=== PATIENT | female | born 1945 | race Caucasian/White ===

== ENCOUNTER 2023-10-24 07:23 | Day surgery (SDC) | payer BC ==
[2023-10-20 16:21] LABS: BASOPHILS # (AUTO) 0.1 X10'3 (0-0.2); BASOPHILS % (AUTO) 0.8 % (0-1); EOSINOPHILS # (AUTO) 0.3 X10'3 (0-0.9); EOSINOPHILS % (AUTO) 3.3 % (0-6); LYMPHOCYTES # (AUTO) 2.4 X10'3 (1.1-4.8); LYMPHOCYTES % (AUTO) 26.3 % (21-51); MEAN CORPUSCULAR HEMOGLOBIN 30.3 PG (27.0-31.0); MEAN CORPUSCULAR HGB CONC 33.5 g/dL (33.0-36.5); MEAN CORPUSCULAR VOLUME 90.7 FL (78-98); MEAN PLATELET VOLUME 9.7 FL (7.4-10.4); MONOCYTES # (AUTO) 0.7 X10'3 (0-0.9); MONOCYTES % (AUTO) 7.8 % (2-12); NEUTROPHILS # (AUTO) 5.7 X10'3 (1.8-7.7); NEUTROPHILS % (AUTO) 61.8 % (42-75); PRE OP HEMATOCRIT 42.2 % (35.0-45.0); PRE OP HEMOGLOBIN 14.1 g/dL (12.0-16.0); PRE OP PLATELET COUNT 261 X10'3 (140-440); PRE OP WHITE BLOOD COUNT 9.2 10'3 (4.8-10.8); RED BLOOD COUNT 4.65 X10'6 (4.20-5.60)
[2023-10-20 16:53] LABS: ALBUMIN 3.8 G/DL (3.4-5.0); ALKALINE PHOSPHATASE 94 IU/L (46-116); BLOOD UREA NITROGEN 29 MG/DL (7-18); BUN/CREATININE RATIO 39.7 (10.0-20.0); CALCIUM 9.6 MG/DL (8.5-10.1); CHLORIDE 103 MMOL/L (99-107); CREATININE 0.73 MG/DL (0.40-0.90); PRE OP ALT 28 U/L (30-65); PRE OP ANION GAP 7 (8-16); PRE OP AST 23 U/L (10-37); PRE OP BILIRUB, TOTAL 0.3 MG/DL (0.0-1.0); PRE OP GLUCOSE 97 MG/DL (70-104); PRE OP SODIUM 140 MMOL/L (135-145); TOTAL CARBON DIOXIDE 29.7 MMOL/L (24-32); TOTAL PROTEIN 7.6 G/DL (6.4-8.2); eGFR 78 ML/MIN
[~2023-10-24] VITALS: Ht 156.2 cm; Wt 81.4 kg
[2023-10-24] VITALS (11 sets, daily range): BP systolic 108–140; BP diastolic 54–85; PULSE 64–81; RESP 11–16; TEMP 97.8; O2SAT 94–98
[2023-10-24] MEDS: cefazolin 2gm/D5W 100mL 100 ML IV ONE (05:30)
[~2023-10-24 07:23] MED LIST: AMLO5TAB16 PO; ASPI81TA52 PO; BUDE10.2; DOCU-337 PO; ESTR10TA4 VG; GABA-530; HYDR25TA4 PO; LEVO25TA7 PO; LORA-641; MIDAZolam 1mg/ml 10ml vial ONE; OXYB-58 PO; POTA-208 PO; ROSU20TA73 PO; TRIA10.8 BOTHNARES; ePHEDrine 50MG/ML INJ. ONE; fentaNYL/PF 50MCG/1 ML 2ML syringe ONE
[2023-10-24] MEDS ORDERED: hydrALAZINE 20mg/ml inj. IV PRN (07:55)
[2023-10-24] MEDS ORDERED: ringers solution, lacted 1,000 ML IV SCH (07:55)
[2023-10-24] MEDS ORDERED: meperidine/PF 25mg/ml syringe IV PRN ×2 (07:55)
[2023-10-24] MEDS ORDERED: proCHLORperazine 10 MG/2 ml inj IV PRN (07:55)
[2023-10-24] MEDS ORDERED: labetalol 20mg/4ml (5mg/ml) syringe IV PRN (07:55)
[2023-10-24] MEDS ORDERED: ondansetron/PF 4mg/2ml inj IV PRN (07:55)
[2023-10-24] MEDS ORDERED: morphine 2 MG/ML inj. syringe IV PRN (07:55)
[2023-10-24] MEDS: famotidine 20mg tablet PO ONE (08:22)
[2023-10-24] MEDS: ringers solution, lacted 1,000 ML IV SCH (08:23)
[2023-10-24 09:28] LABS: ISTAT CREATININE 0.8 mg/dL (0.6-1.1); ISTAT HGB 14.3 g/dl (12.0-16.0); ISTAT IONIZED CALCIUM 1.11 mmol/L (1.03-1.32); ISTAT K 3.8 mmol/L (3.5-5.1)
[2023-10-24] MEDS ORDERED: LIDOcaine 2% (20mg/ml) 5ml vial ONE (10:32)
[2023-10-24] MEDS ORDERED: BUPIVAcaine/PF 2.5mg/ml (0.25%) 10ml vial ONE (10:32)
[2023-10-24] MEDS ORDERED: fentaNYL/PF 50MCG/1 ML 2ML syringe ONE (11:59)
[2023-10-24] MEDS ORDERED: propofol 10mg/ml 20ml vial IV ONE (11:59)
[2023-10-24] MEDS ORDERED: midazolam 1 mg/ML 2ml injection ONE (12:26)
[2023-10-24] MEDS: acetaminophen 1,000mg/100ml IV 100 ML IV ONE (12:48)
[2023-10-24] MEDS: meperidine/PF 25mg/ml syringe IV PRN (13:04)
[2023-10-24] MEDS: morphine 4 MG/ML inj SYRINge IV PRN (13:14)
== END 2023-10-24 13:49 | disposition home or self-care (01) ==
LOC: PAS 07:23
PROVIDERS: ATTEND Orthopaedic Surgery Hand Surgery
DX: G56.01 Carpal tunnel syndrome, right upper limb (principal); M65.4 Radial styloid tenosynovitis [de Quervain]; M18.11 Unilateral primary osteoarthritis of first carpometacarpal joint, right hand; M19.012 Primary osteoarthritis, left shoulder; I10 Essential (primary) hypertension; J44.9 Chronic obstructive pulmonary disease, unspecified; E03.9 Hypothyroidism, unspecified; E78.5 Hyperlipidemia, unspecified; F10.90 Alcohol use, unspecified, uncomplicated; Z90.710 Acquired absence of both cervix and uterus; Z90.49 Acquired absence of other specified parts of digestive tract; Z90.89 Acquired absence of other organs; Z96.661 Presence of right artificial ankle joint; Z79.890 Hormone replacement therapy; Z79.899 Other long term (current) drug therapy; Z88.1 Allergy status to other antibiotic agents; Z91.040 Latex allergy status; Z98.890 Other specified postprocedural states
CPT/HCPCS: 25000; 36415; 64721; 80047; 80053; 85025; 93005; J0131; J0690; J2175; J2250; J2270; J2704; J3010; J3490; J7030; J7120; Z7506; Z7512; A4215; A6449